=== PATIENT | male | born 1960 | race African-American/Black ===

== ENCOUNTER 2021-03-31 18:07 | Observation (INO) | payer OTHER ==
[2021-03-31] MEDS ORDERED: SODIUM CHLORIDE 1,000 ML IV STA (19:10)
[2021-03-31] MEDS ORDERED: LACTATED RINGERS SOLUTION 1000 ML INFUS.BAG IV ONE (19:58)
[2021-03-31 20:14] LABS: VENOUS BASE EXCESS 1.5 mmol/L (-2-2); VENOUS O2 SATURATION 83.1 % (70-80); VENOUS PCO2 42.6 mmHg (38-52); VENOUS PH 7.411 (7.310-7.410)
[2021-03-31 20:15] LABS: BASO % 0.6 % (0-2.0); EOS % 3.6 % (0-4.5); HEMATOCRIT 46.2 % (35.4-49); HEMOGLOBIN 15.6 GM/dL (11.7-16.9); LYMPH % 36.2 % (8-40); MCH 31.8 pg (25.7-33.7); MCHC 33.8 g/dl (32.0-35.9); MEAN PLT VOLUME 9.7 fl (7.5-11.1); MONO % 7.2 % (3.8-10.2); NEUT % 52.4 % (42.8-82.8); PLATELET COUNT 234 K/MM3 (134-434); RBC 4.92 M/mm3 (4.00-5.60); RDW 12.1 % (11.9-15.9); WHITE BLOOD COUNT 5.4 K/mm3 (4.0-10.0)
[2021-03-31 20:43] LABS: CHLORIDE 97 mmol/L (98-107); SODIUM 133 mmol/L (136-145)
[2021-03-31 20:45] LABS: CALCIUM 9.5 mg/dL (8.5-10.1)
[2021-03-31 20:46] LABS: ALBUMIN 3.7 g/dl (3.4-5.0); ANION GAP 8 MMOL/L (8-16); BLOOD UREA NITROGEN 20.9 mg/dL (7-18); CO2 29 mmol/L (21-32); MAGNESIUM 2.5 mg/dL (1.8-2.4)
[2021-03-31 20:49] LABS: CREATININE 1.6 mg/dL (0.55-1.3); PHOSPHOROUS 4.6 mg/dL (2.5-4.9); SGOT/AST 14 U/L (15-37); SGPT/ALT 36 U/L (13-61)
[2021-03-31 20:50] LABS: BILIRUBIN,TOTAL 0.5 mg/dL (0.2-1); TOT PROT 7.3 g/dl (6.4-8.2)
[2021-03-31 20:52] LABS: ALK PHOS 127 U/L (45-117)
[2021-03-31 20:57] LABS: GLUCOSE,RANDOM 527 mg/dL (74-106)
[2021-03-31 21:02] LABS: URINE APPEARANCE CLEAR; URINE BILIRUBIN NEGATIVE (NEGATIVE); URINE COLOR YELLOW; URINE GLUCOSE (UA) 3+ (NEGATIVE); URINE KETONE TRACE (NEGATIVE); URINE LEUK ESTERASE NEGATIVE (NEGATIVE); URINE NITRITE NEGATIVE (NEGATIVE); URINE PROTEIN NEGATIVE (NEGATIVE); URINE UROBILINOGEN 0.2 mg/dL (0.2-1.0)
[2021-03-31] MEDS ORDERED: SODIUM CHLORIDE 1,000 ML IV SCH (22:30)
[2021-03-31] MEDS ORDERED: INSULIN (LEVEMIR) 100 UNITS/ML UNITS SQ ONE (23:59)
[2021-04-01] MEDS: INSULIN (LEVEMIR) 100 UNITS/ML UNITS SQ SCH ×2 (00:07→06:43)
[2021-04-01] MEDS: HEPARIN NA (PORCINE) 5,000 UNITS/ML 1ML VIAL SQ SCH ×4 (00:07→21:00)
[2021-04-01] MEDS ORDERED: INSULIN (NOVOLOG) ASPART 100 UNITS/ML 10ML VIAL SQ ONE (01:12)
[2021-04-01 03:33] VITALS: BMI 28.9
[2021-04-01] MEDS: INSULIN SLIDING SCALE (NOVOLOG) 1 VIAL SQ SCH ×4 (06:43→21:03)
[2021-04-01 08:31] LABS: BASO % 0.6 % (0-2.0); EOS % 4.1 % (0-4.5); LYMPH % 37.8 % (8-40); MCH 32.1 pg (25.7-33.7); MCHC 34.2 g/dl (32.0-35.9); MEAN CELL VOLUME 93.9 fl (80-96); MEAN PLT VOLUME 9.8 fl (7.5-11.1); MONO % 8.3 % (3.8-10.2); NEUT % 49.2 % (42.8-82.8); PLATELET COUNT 196 K/MM3 (134-434); RBC 4.36 M/mm3 (4.00-5.60); WHITE BLOOD COUNT 4.6 K/mm3 (4.0-10.0)
[2021-04-01 08:48] LABS: CALCIUM 8.8 mg/dL (8.5-10.1)
[2021-04-01 08:49] LABS: BLOOD UREA NITROGEN 17.2 mg/dL (7-18); MAGNESIUM 2.3 mg/dL (1.8-2.4)
[2021-04-01 08:52] LABS: CREATININE 1.2 mg/dL (0.55-1.3); PHOSPHOROUS 3.6 mg/dL (2.5-4.9)
[2021-04-01 08:53] LABS: BILIRUBIN,TOTAL 0.7 mg/dL (0.2-1)
[2021-04-01 08:54] LABS: TOT PROT 5.9 g/dl (6.4-8.2)
[2021-04-01] MEDS ORDERED: INSULIN (LEVEMIR) 100 UNITS/ML UNITS SQ SCH (15:46)
[2021-04-01] MEDS ORDERED: ATORVASTATIN CA 20 MG TABLET (FP) PO SCH (22:00)
[2021-04-02] MEDS: HEPARIN NA (PORCINE) 5,000 UNITS/ML 1ML VIAL SQ SCH ×2 (05:57→14:13)
[2021-04-02] MEDS: INSULIN SLIDING SCALE (NOVOLOG) 1 VIAL SQ SCH ×2 (06:00→11:55)
[2021-04-02] MEDS ORDERED: INSULIN (NOVOLOG MIX 70/30) 100 UNITS/ML MDV SQ SCH (07:00)
[2021-04-02] MEDS ORDERED: sitaGLIPtin PHOSPHATE 50 MG TABLET PO SCH (07:00)
[2021-04-02 08:18] LABS: BASO % 0.4 % (0-2.0); EOS % 3.9 % (0-4.5); HEMATOCRIT 42.1 % (35.4-49); HEMOGLOBIN 14.4 GM/dL (11.7-16.9); LYMPH % 50.3 % (8-40); MCHC 34.2 g/dl (32.0-35.9); MEAN CELL VOLUME 93.4 fl (80-96); MEAN PLT VOLUME 9.7 fl (7.5-11.1); MONO % 6.4 % (3.8-10.2); PLATELET COUNT 205 K/MM3 (134-434); RBC 4.51 M/mm3 (4.00-5.60); RDW 12.1 % (11.9-15.9); WHITE BLOOD COUNT 4.5 K/mm3 (4.0-10.0)
[2021-04-02 08:53] LABS: ALBUMIN 2.9 g/dl (3.4-5.0); MAGNESIUM 2.2 mg/dL (1.8-2.4)
[2021-04-02 08:55] LABS: CALCIUM 8.9 mg/dL (8.5-10.1)
[2021-04-02 08:56] LABS: BLOOD UREA NITROGEN 13.4 mg/dL (7-18)
[2021-04-02 08:58] LABS: TOT PROT 5.8 g/dl (6.4-8.2)
[2021-04-02 09:01] LABS: BILIRUBIN,TOTAL 0.9 mg/dL (0.2-1)
[2021-04-02 09:57] LABS: ANISOCYTOSIS 1+; MACROCYTOSIS 0; OVALOCYTE 1+; PLATELET ESTIMATE NORMAL
[2021-04-02] MEDS ORDERED: LISINOPRIL 20 MG TABLET PO SCH (10:00)
[2021-04-02] MEDS ORDERED: INSULIN (NOVOLOG) ASPART 100 UNITS/ML 10ML VIAL ONE (11:40)
[2021-04-02 16:06] VITALS: BP 126/73; PULSE 67; TEMP 98.2
== END 2021-04-02 17:01 | disposition home or self-care (01) ==
LOC: JER 18:07 → JERBED 20:53 → J6S 04-01 02:44
PROVIDERS: ADMIT Hospitalist; ATTEND Nurse Practitioner Acute Care
DX: G25.89 Other specified extrapyramidal and movement disorders (principal); R25.1 Tremor, unspecified; R29.6 Repeated falls; G51.0 Bell's palsy; R53.1 Weakness; E87.8 Other disorders of electrolyte and fluid balance, not elsewhere classified; Z87.891 Personal history of nicotine dependence
CPT/HCPCS: 36415; 71046-TC-FY; 80053; 80061; 81003; 82010; 82436; 82570; 82803; 82962; 83036; 83721; 83735; 84100; 84133; 84156; 84300; 84484; 85025; 87086; 93005; 93010; 99285-25; C9803; G0378; J1644; U0003; U0005